=== PATIENT | male | born 1995 | race African-American/Black ===

== ENCOUNTER 2018-12-02 02:33 | Emergency (ER) | payer MEDICAID ==
--- NOTE | 2018-12-02 09:41 | RAD ---
LEFT KNEE 4 VIEWS: DATE: 12/02/18 HISTORY: Pain. COMPARISON: None. FINDINGS: Joint space preserved. No fracture or malalignment. No joint effusion. IMPRESSION: Unremarkable left knee 4 views. POS: OFF
== END 2018-12-02 06:36 | disposition left against medical advice (07) ==
LOC: ERS 02:33
DX: Z53.21 Procedure and treatment not carried out due to patient leaving prior to being seen by health care provider (principal)